=== PATIENT | male | born 1970 | race African-American/Black ===

== ENCOUNTER 2016-06-13 16:43 | Emergency (ER) | payer OTHER ==
--- NOTE | ~2016-06-13 | CR230 ---
[facility] A Service of [facility] & [facility] RADIOLOGY TEXT RESULTS PATIENT: DONNA DIAS LOCATION: [facility] : 74 UNIT #: [id number] AGE: [address]: MITESH Collins Doctor SEX: M ORDER DR: [id number] [place], [place] [address] [id number] P MR#: [id number] Acc #: [id number] NAME: DONNA DIAS : 1970 SEX: M STUDY DATE/TIME: 06/13/2016 14:16 UNIT: [facility] ROOM: STUDY DESCRIPTION: CR Shoulder Min 2 View Rt Ordering Physician: Delonte Hill M.D. MEDICAL IMAGING REPORT This report is preliminary unless electronic signature is present EXAM Right shoulder, 3 views. HISTORY Shoulder pain began 1 month ago. No known injury. FINDINGS Three views are submitted. Bony elements are intact. Joint spaces and articular surfaces are preserved. No fractures are seen. CONCLUSION Negative. Dictated by... Kaiser Mix M.D. THIS IS AN ELECTRONICALLY VERIFIED REPORT Kaiser Mix M.D. at 06/13/2016 5:07 PM CONNER/brady TD: 06/13/2016 16:43 JOB #: [id number] MEDICAL IMAGING REPORT COPY
[~2016-06-13 16:43] MED LIST: CIPRO PO; FLAGYL PO; FLEXERIL10 MG PO; KETOPROFEN PO; LORTAB 5/500 TA1 TA2 PO; MOTRIN600 MG PO; NAPROSYN500 MG PO
== END 2016-06-13 16:51 | disposition home or self-care (01) ==
LOC: CFTX 16:43
DX: S46.911A Strain of unspecified muscle, fascia and tendon at shoulder and upper arm level, right arm, initial encounter (principal); F17.210 Nicotine dependence, cigarettes, uncomplicated; X58.XXXA Exposure to other specified factors, initial encounter
CPT/HCPCS: 73030; 99283

== ENCOUNTER → 2016-08-08 22:17 | Emergency (ER) | payer OTHER | END | disposition left against medical advice (07) | LOC: CED 22:17 | DX: Z53.21 Procedure and treatment not carried out due to patient leaving prior to being seen by health care provider (principal) ==

== ENCOUNTER 2016-11-09 07:47 | Emergency (ER) | payer OTHER ==
[~2016-11-09] VITALS: Ht 190.5 cm; Wt 77.1 kg
--- NOTE | ~2016-11-09 | CR72 ---
[facility] A Service of [facility] & [facility] RADIOLOGY TEXT RESULTS PATIENT: DONNA DIAS LOCATION: [facility] : 74 UNIT #: [id number] AGE: [address]: Evan Hidalgo MD SEX: M ORDER DR: [id number] [facility] [address] [place], [place] [address] [id number] MR#: [id number] Acc #: [id number] NAME: DONNA DIAS : 1970 SEX: M STUDY DATE/TIME: 11/09/2016 8:08 UNIT: [facility] ROOM: STUDY DESCRIPTION: CR Chest Single View Portable Attending Physician: Evan Hidalgo M.D. Ordering Physician: Evan Hidalgo M.D. Primary Care Physician: Tesfaye Barfield M.D. MEDICAL IMAGING REPORT This report is preliminary unless electronic signature is present EXAM Portable chest, 11/09/2016, [facility]. HISTORY 46-year-old male, chest pain starting today. Patient gives a smoking history. COMPARISON Portable chest, 05/21/2014. FINDINGS AP portable chest demonstrates normal stable heart size. Hilar structures and mediastinal contours are preserved. There is a moderate thoracic dextroscoliosis again noted. Bilateral lungs are expanded and clear. I see no infiltrates, mass or pleural effusion. IMPRESSION Moderate thoracic dextroscoliosis. No acute chest finding. Dictated by... Chon Esquivel M.D. THIS IS AN ELECTRONICALLY VERIFIED REPORT Chon Esquivel M.D. at 11/09/2016 1:19 PM KESHAV/seng TD: 11/09/2016 11:20 JOB #: [id number] MEDICAL IMAGING REPORT Page 1 of 1 COPY
--- NOTE | ~2016-11-09 | EKG ---
PATIENT: DONNA DIAS UNIT #: [id number] Ventricular Rate: 78 BPM Atrial Rate: 78 BPM P-R Interval: 150 ms QRS Duration: 86 ms Q-T Interval: 390 ms QTC Calculation(Bezet): 444 ms P [place]: 77 degrees Calculated R [place]: 82 degrees Calculated T [place]: 18 degrees Diagnosis Line: Normal sinus rhythm Diagnosis Line: Normal ECG Diagnosis Line: When compared with ECG of 21-MAY-2014 08:20, Diagnosis Line: T wave inversion now evident in Inferior leads Diagnosis Line: Confirmed by ANNA BLUM MD ([id number]) on Diagnosis Line: 11/09/2016 12:01:12 PM INTERPRETING MD: KULWANT العلي
[2016-11-09 08:40] LABS: POC - CKMB 3.9 ng/mL (0.0-7.9); POC - TROPONIN <0.05 ng/mL (<=0.05)
[2016-11-09 08:42] LABS: BASOPHIL% 0.5 % (0-2.5); EOSINOPHIL% 0.2 % (0.0-7.0); HEMATOCRIT 37.6 % (38.0-50.0); HEMOGLOBIN 12.2 gm/dL (13.0-16.0); LYMPHOCYTE# 0.7 X10e3 (1.0-3.5); LYMPHOCYTE% 17.4 % (17.0-45.0); MEAN CELL VOLUME 89.7 FL (83-96); MEAN CORPUSCULAR HEMOGLOBIN 29.1 PG (28-34); MEAN CORPUSCULAR HGB CONC 32.5 g/dL (30-36); MEAN PLATELET VOLUME 8.2 FL (6.5-11.5); MONOCYTE# 0.3 X10e3 (0-1.0); MONOCYTE% 6.3 % (3.0-12.0); NEUTROPHIL# 3.1 X10e3 (1.5-7.1); NEUTROPHIL% 75.6 % (40-75); PLATELET COUNT 226 X10e3 (140-420); RED CELL DISTRIBUTION WIDTH 13.8 % (11.0-15.5); WHITE BLOOD COUNT 4.1 X10e3 (4.0-10.5)
[2016-11-09 08:55] LABS: DIFF IND NO
[2016-11-09 09:13] LABS: INR 1.1; PARTIAL THROMBOPLASTIN TIME 31.6 SECONDS (23.5-31.3); PROTHROMBIN TIME (PATIENT) 11.6 SECONDS (10.0-11.7)
[2016-11-09 09:20] LABS: ALBUMIN SERUM 4.2 g/dL (3.5-5.0); BILIRUBIN, DIRECT 0.2 mg/dL (0.0-0.2); BILIRUBIN,TOTAL 1.2 mg/dL (0.2-2.0); BUN/CREATININE RATIO 9.16; CALCIUM SERUM 8.7 mg/dL (8.4-10.2); CREATININE SERUM 1.2 mg/dL (0.6-1.4); GLOM FILT RATE Estimated 84.8 mL/min (>60); POTASSIUM 3.6 mmol/L (3.5-5.1); PROTEIN TOTAL SERUM 7.6 g/dL (6.0-8.3)
[2016-11-09 10:13] LABS: POC - CKMB 4.3 ng/mL (0.0-7.9); POC - TROPONIN <0.05 ng/mL (<=0.05)
== END 2016-11-09 10:40 | disposition home or self-care (01) ==
LOC: CED 07:47
PROVIDERS: Emergency Medicine
DX: R07.89 Other chest pain (principal); F17.200 Nicotine dependence, unspecified, uncomplicated
CPT/HCPCS: 36415; 71010; 80048; 80076; 82553; 83880; 84484; 85025; 85610; 85730; 93005; 99285; G0480